=== PATIENT | male | born 1980 | race Caucasian/White ===

== ENCOUNTER 2021-09-05 14:42 | Inpatient (IN) | payer OTHER ==
[2021-09-05 15:51] VITALS: BMI 26.6
[2021-09-05] MEDS ORDERED: BUPRENORPHINE HCL 150 MCG, BUPRENORPHINE HCL 75 MCG BC PRN (17:37)
[2021-09-05] MEDS ORDERED: IBUPROFEN 600 MG TABLET (FP) PO PRN (17:37)
[2021-09-05] MEDS ORDERED: DICYCLOMINE HCL 10 MG CAPSULE PO PRN (17:37)
[2021-09-05] MEDS ORDERED: cloNIDine HCL 0.1 MG TABLET PO ONE (17:37)
[2021-09-05] MEDS ORDERED: MAGNESIUM HYDROX 2400MG/30ML ORAL SUSPENSION 30 ML CUP PO PRN (17:37)
[2021-09-05] MEDS ORDERED: ACETAMINOPHEN 325 MG TABLET (FP) PO PRN ×2 (17:37)
[2021-09-05] MEDS ORDERED: MAGNESIUM CITRATE 300 ML BOTTLE PO PRN (17:37)
[2021-09-05] MEDS ORDERED: BISMUTH SUBSALICYLATE 524 MG/30 ML PO PRN (17:37)
[2021-09-05] MEDS ORDERED: BUPRENORPHINE HCL 150 MCG, BUPRENORPHINE HCL 75 MCG BC ONE (17:37)
[2021-09-05] MEDS ORDERED: BENZOCAINE/MENTHOL (CHLORASEPTIC ) LOZENGE MM PRN (17:37)
[2021-09-05] MEDS ORDERED: LOPERAMIDE HCL 2 MG CAPSULE PO PRN (17:37)
[2021-09-05] MEDS ORDERED: ONDANSETRON *ODT* 4 MG TABLET SL PRN (17:37)
[2021-09-05] MEDS ORDERED: NALOXONE HCL 0.4 MG/ML VIAL IM PRN (17:37)
[2021-09-05] MEDS ORDERED: IBUPROFEN 400 MG TABLET (FP) PO PRN (17:37)
[2021-09-05] MEDS ORDERED: MAG HYDROX/AL HYDROX/SIMETH 30 ML UNIT-DOSE CUP PO PRN (17:37)
[2021-09-05] MEDS ORDERED: NICOTINE 10 MG CARTRIDGE (INHALER) IH PRN (17:37)
[2021-09-05] MEDS ORDERED: cloNIDine HCL 0.1 MG TABLET PO PRN (21:39)
[2021-09-05] MEDS ORDERED: BUPRENORPHINE HCL 150 MCG FILM BC ONE (23:19)
[2021-09-05] MEDS ORDERED: cloNIDine HCL 0.1 MG TABLET ONE (23:20)
[2021-09-05] MEDS ORDERED: hydrOXYzine PAMOATE 25 MG CAPSULE (FP) PO ONE (23:20)
[2021-09-05] MEDS ORDERED: BUPRENORPHINE HCL 75 MCG FILM BC ONE (23:20)
[2021-09-05] MEDS: MELATONIN 5 MG TABLETS PO SCH (23:28)
[2021-09-05] MEDS: hydrOXYzine PAMOATE 25 MG CAPSULE (FP) PO SCH ×2 (23:28)
[2021-09-05] MEDS: THIAMINE HCL 100 MG TABLET (FP) PO SCH (23:29)
[2021-09-06] MEDS ORDERED: BUPRENORPHINE HCL 150 MCG, BUPRENORPHINE HCL 75 MCG BC PRN
[2021-09-06] MEDS ORDERED: hydrOXYzine PAMOATE 25 MG CAPSULE (FP) PO ONE ×2 (07:15→10:03)
[2021-09-06] MEDS ORDERED: BUPRENORPHINE HCL 75 MCG FILM BC ONE ×3 (07:15→17:38)
[2021-09-06] MEDS ORDERED: BUPRENORPHINE HCL 150 MCG FILM BC ONE ×3 (07:15→17:37)
[2021-09-06] MEDS: hydrOXYzine PAMOATE 25 MG CAPSULE (FP) PO SCH ×5 (07:17→23:03)
[2021-09-06] MEDS: BUPRENORPHINE HCL 150 MCG, BUPRENORPHINE HCL 75 MCG BC SCH ×2 (07:18→18:09)
[2021-09-06 10:25] LABS: HEMATOCRIT 40.4 % (35.4-49); HEMOGLOBIN 13.8 GM/dL (11.7-16.9); MCH 30.9 pg (25.7-33.7); MCHC 34.3 g/dl (32.0-35.9); MEAN CELL VOLUME 90.1 fl (80-96); MEAN PLT VOLUME 8.1 fl (7.5-11.1); PLATELET COUNT 248 10^3/uL (134-434); RBC 4.48 M/mm3 (4.00-5.60); RDW 13.5 % (11.9-15.9); WHITE BLOOD COUNT 4.1 K/mm3 (4.0-10.0)
[2021-09-06 10:29] LABS: CALCIUM 9.3 mg/dL (8.5-10.1)
[2021-09-06 10:30] LABS: ALBUMIN 3.6 g/dl (3.4-5.0); BLOOD UREA NITROGEN 13.5 mg/dL (7-18)
[2021-09-06 10:33] LABS: BILIRUBIN,TOTAL 0.7 mg/dL (0.2-1); TOT PROT 7.3 g/dl (6.4-8.2)
[2021-09-06] MEDS: PRENATAL VITAMINS W/ FOLIC ACID TABLET (FP) PO SCH (12:50)
[2021-09-06] MEDS: MELATONIN 5 MG TABLETS PO SCH (23:02)
[2021-09-06] MEDS: MIRTAZAPINE 15 MG TABLET (FP) PO SCH (23:02)
[2021-09-06] MEDS: THIAMINE HCL 100 MG TABLET (FP) PO SCH (23:03)
[2021-09-07] MEDS: BUPRENORPHINE HCL 450 MCG FILM BC SCH ×2 (05:24→18:37)
[2021-09-07] MEDS: hydrOXYzine PAMOATE 25 MG CAPSULE (FP) PO SCH ×5 (05:24→22:46)
[2021-09-07] MEDS: diazePAM 5 MG TABLET PO PRN ×2 (09:54→16:45)
[2021-09-07] MEDS: PRENATAL VITAMINS W/ FOLIC ACID TABLET (FP) PO SCH (09:54)
[2021-09-07] MEDS: METHOCARBAMOL 500 MG TABLET PO PRN (17:59)
[2021-09-07] MEDS: MIRTAZAPINE 15 MG TABLET (FP) PO SCH (22:46)
[2021-09-07] MEDS: MELATONIN 5 MG TABLETS PO SCH (22:46)
[2021-09-07] MEDS: THIAMINE HCL 100 MG TABLET (FP) PO SCH (22:46)
[2021-09-08] MEDS ORDERED: BUPRENORPHINE/NALOXONE 4 MG/1 MG FILM PACKET SL SCH (06:00)
[2021-09-08] MEDS: hydrOXYzine PAMOATE 25 MG CAPSULE (FP) PO SCH ×3 (07:33→13:31)
[2021-09-08] MEDS: PRENATAL VITAMINS W/ FOLIC ACID TABLET (FP) PO SCH (09:23)
[2021-09-08] MEDS: diazePAM 5 MG TABLET PO PRN ×2 (09:24→13:29)
[2021-09-08] MEDS ORDERED: BUPRENORPHINE/NALOXONE 4 MG/1 MG FILM PACKET SL ONE (10:00)
[2021-09-08 12:47] VITALS: BP 107/65; PULSE 92; TEMP 97.7
[2021-09-08] MEDS: METHOCARBAMOL 500 MG TABLET PO PRN (13:29)
[2021-09-09] MEDS ORDERED: BUPRENORPHINE/NALOXONE 8 MG/2 MG FILM PACKET SL ONE (06:00)
== END 2021-09-08 15:00 | disposition left against medical advice (07) | DRG 770 ==
LOC: SUATTDRO 14:42 → YASAS 14:42 → Y3N 09-06 11:52
PROVIDERS: ADMIT Allergy & Immunology; ATTEND Surgery
PROC: HZ2ZZZZ Detoxification Services for Substance Abuse Treatment (ICD-10-PCS; principal; 2021-09-06)
DX: F11.23 Opioid dependence with withdrawal (principal); F14.20 Cocaine dependence, uncomplicated; F12.20 Cannabis dependence, uncomplicated; F19.24 Other psychoactive substance dependence with psychoactive substance-induced mood disorder; F32.A Depression, unspecified; G40.909 Epilepsy, unspecified, not intractable, without status epilepticus; B18.2 Chronic viral hepatitis C; Z87.891 Personal history of nicotine dependence; Z56.0 Unemployment, unspecified; Z59.00 Homelessness unspecified
CPT/HCPCS: 36415; 80053; 85027; 86780; C9803-CS; J0735; U0003; U0005